=== PATIENT | male | born 1965 | race Caucasian/White ===

== ENCOUNTER 2018-03-04 12:59 | Emergency (ER) | payer OTHER ==
--- NOTE | 2018-03-04 13:13 | CPEKG ---
Heart Rate: 92 RR Interval: 652 P-R Interval: 160 QRSD Interval: 78 QT Interval: 344 QTC Interval: 426 P [place]: 46 QRS [place]: -23 T Wave [place]: 42 EKG Severity - OTHERWISE NORMAL ECG - EKG Impression: SINUS RHYTHM EKG Impression: BORDERLINE LEFT AXIS DEVIATION Electronically Signed By: Timo Andrade 04-Mar-2018 13:18:04
--- NOTE | 2018-03-04 13:14 | EDPHY ---
H & P Stated Complaint: Imbalance Time Seen by Provider: 03/04/18 13:14 HPI/ROS: CHIEF COMPLAINT: TIA HISTORY OF PRESENT ILLNESS: The patient is a 52-year-old man with a history of stroke that improved after lytics 1 year ago. He denies residual complaints other than trouble with his long-term memory. He states that around 930 this morning he began to feel confused and have trouble with his gait. At around 12: 30 p.m. He called his friend who picked him up and brought him to the ER. Patient states that his symptoms are now improved. He also complains of a headache. He denies trauma. No recent fevers or infections. No focal weakness or deficits. No trouble with speech. Some tingling throughout his entire body. No chest pain or shortness of breath. REVIEW OF SYSTEMS: Constitutional: denies: chills, fever, recent illness, recent injury EENTM: denies: blurred vision, double vision, nose congestion Respiratory: denies: cough, shortness of breath Cardiac: denies: chest pain, irregular heart rate, lightheadedness, palpitations Gastrointestinal/Abdominal: denies: abdominal pain, diarrhea, nausea, vomiting, blood streaked stools Genitourinary: denies: dysuria, frequency, hematuria, pain Musculoskeletal: denies: joint pain, muscle pain Skin: denies: lesions, rash, jaundice, bruising Neurological: See HPI denies: numbness, paresthesia, dizziness, weakness Hematologic/Lymphatic: denies: blood clots, easy bleeding, easy bruising Immunologic/allergic: denies: HIV/AIDS, transplant - Physical Exam General Appearance: WD/WN, mild distress Eyes, Ears, Nose, Throat Exam: PERRL/EOMI, normal ENT inspection, pharynx normal Neck: non-tender, full range of motion, supple, normal inspection. No: stiff neck, tender lateral Cardiovascular/Chest: normal peripheral pulses, regular rate, rhythm Respiratory: chest non-tender, lungs clear, normal breath sounds. No: crackles , rhonchi Gastrointestinal/Abdominal: normal bowel sounds, non tender, soft Back Exam: normal inspection Extremity: normal range of motion, non-tender, normal inspection Mental Status: alert, oriented x 3 CN's Exam: NIH stroke score 0, normal hearing, normal speech, PERRL, normal eye position, normal gag reflex, normal pupil position, normal speech. No: facial asymmetry, facial droop, facial paresthesias, gaze palsy, tongue deviation to R, tongue deviation to L Coordination/Gait: normal finger to nose Motor/Sensory: normal. No: motor deficit, sensory deficit, pronator drift (R), pronator drift (L), weak motor strength RUE, weak motor strength LUE, weak motor strength RLE, weak motor strength LLE DTR: tricep (R): 2+, tricep (L): 2+, knee (R): 2+, knee (L): 2+ Skin Exam: warm/dry, normal color Lymphatic: no adenopathy Source: Patient - Medical/Surgical History Hx Asthma: No Hx Chronic Respiratory Disease: No Hx Diabetes: No Hx Cardiac Disease: No Hx Renal Disease: No Hx Cirrhosis: No Hx Alcoholism: No Other PMH: TIA, CVA - Family History Significant Family History: No pertinent family hx - Social History Smoking Status: Never smoked Alcohol Use: Sober Constitutional: Initial Vital Signs Temperature (C) 37.2 C 03/04/18 13:05 Heart Rate 90 03/04/18 13:05 Respiratory Rate 16 03/04/18 13:05 Blood Pressure 157/100 H 03/04/18 13:05 O2 Sat (%) 96 03/04/18 13:05 O2 Delivery Mode Room Air Allergies/Adverse Reactions: No Known Allergies Allergy (Unverified 03/04/18 13:24) Home Medications: Medication Instructions Recorded Aspirin 03/04/18 Zantac 03/04/18 Medical Decision Making - Diagnostics EKG Interpretation: An EKG obtained and was read and documented in trace view. Please see trace view for full reading and report. Sinus rhythm, no acute ischemic change Imaging Results: Imaging Impressions Head CT 03/04/18 13:04 Impression: No acute intracranial findings. Findings discussed with Timo Andrade 03/04/2018 at 13:29. Brain MRI 03/04/18 13:44 Impression: 1. No acute intracranial findings. 2. Punctate left frontal white matter FLAIR hyperintensities, which could be related to chronic microvascular ischemic gliosis, or much less likely sequela of migraines, vasculitis, or demyelination. 3. Tiny area of susceptibility-weighted hypointensity in the left temporoparietal region, which could be related to punctate calcification or hemosiderin deposition. There is equivocal calcification in this region in retrospect on the comparison CT. Findings discussed with Dr. Timo Andrade on March 04, 2018 at 1527 hours. Imaging: Discussed imaging studies w/ at home independent call center agent Radiologist ED Course/Re-evaluation: 1:20 p.m. discussed the case with Dr. Valles from [facility]. 1:[address] Valles agrees that the patient is not a candidate for tPA. He recommends MRI to evaluate for stroke and also recommends treating for migraine in the meantime. He wonders if this could be a complex migraine that is exacerbating previous stroke symptoms. 3:30 p.m. The patient is feeling much better. He states that the migraine medication help. He has never had migraines before. I spoke again with Dr. Valles who states he thinks it is a complex migraine and recommends follow-up with Neurology as an outpatient. Patient and friend are eager to go home. Differential Diagnosis: Partial list of the Differential diagnosis considered include but were not limited to; complex migraine, TIA, CVA and although unlikely based on the history and physical exam, I also considered infection, medication reaction, intoxication, trauma. I discussed these differential diagnoses and the plan with the patient as well as the usual and expected course. The patient understands that the diagnosis is provisional and that in medicine we are not always correct and that further workup is often warranted. Usual and customary warnings were given. All of the patient's questions were answered. The patient was instructed to return to the emergency department should the symptoms at all worsen or return, otherwise to followup with the physician as we discussed. - Data Points Laboratory Results: Laboratory Results 03/04/18 13:14 03/04/18 13:14 03/04/18 03/04/18 03/04/18 13:28 13:15 13:14 WBC RBC Hgb POC Hgb 16.0 gm/dL gm/dL (13.7-17.5) Hct POC Hct 47 % % (40-51) MCV MCH MCHC RDW Plt Count MPV Neut % (Auto) Lymph % (Auto) [place] % (Auto) Eos % (Auto) Baso % (Auto) Nucleat RBC Rel Count Absolute Neuts (auto) Absolute Lymphs (auto) Absolute Monos (auto) Absolute Eos (auto) Absolute Basos (auto) Absolute Nucleated RBC Immature Gran % Immature Gran # PT INR APTT POC Sodium 143 mEq/L mEq/L (135-145) Sodium 143 mEq/L mEq/L (135-145) POC Potassium 3.7 mEq/L mEq/L (3.3-5.0) Potassium 4.1 mEq/L mEq/L (3.3-5.0) POC Chloride 107 mEq/L mEq/L (97-110) Chloride 108 mEq/L mEq/L (97-110) Carbon Dioxide 23 mEq/l mEq/l (22-31) Anion Gap 12 mEq/L mEq/L (8-16) POC BUN 14 mg/dL mg/dL (7-23) BUN 14 mg/dL mg/dL (7-23) Creatinine 0.8 mg/dL mg/dL (0.7-1.3) POC Creatinine 0.9 mg/dL mg/dL (0.7-1.3) Estimated GFR > 60 Glucose 120 mg/dL H mg/dL (70-100) POC Glucose 133 mg/dL H mg/dL (70-100) Calcium 9.6 mg/dL mg/dL (8.5-10.4) POC Troponin I 0.01 ng/mL ng/mL (0.00-0.08) 03/04/18 03/04/18 13:14 13:14 WBC 9.54 10^3/uL H 10^3/uL (3.80-9.50) RBC 5.11 10^6/uL 10^6/uL (4.40-6.38) Hgb 16.0 g/dL g/dL (13.7-17.5) POC Hgb Hct 45.9 % % (40.0-51.0) POC Hct MCV 89.8 fL fL (81.5-99.8) MCH 31.3 pg pg (27.9-34.1) MCHC 34.9 g/dL g/dL (32.4-36.7) RDW 12.5 % % (11.5-15.2) Plt Count 292 10^3/uL 10^3/uL (150-400) MPV 9.2 fL fL (8.7-11.7) Neut % (Auto) 60.1 % % (39.3-74.2) Lymph % (Auto) 28.1 % % (15.0-45.0) [place] % (Auto) 6.5 % % (4.5-13.0) Eos % (Auto) 4.0 % % (0.6-7.6) Baso % (Auto) 0.8 % % (0.3-1.7) Nucleat RBC Rel Count 0.0 % % (0.0-0.2) Absolute Neuts (auto) 5.73 10^3/uL 10^3/uL (1.70-6.50) Absolute Lymphs (auto) 2.68 10^3/uL 10^3/uL (1.00-3.00) Absolute Monos (auto) 0.62 10^3/uL 10^3/uL (0.30-0.80) Absolute Eos (auto) 0.38 10^3/uL 10^3/uL (0.03-0.40) Absolute Basos (auto) 0.08 10^3/uL 10^3/uL (0.02-0.10) Absolute Nucleated RBC 0.00 10^3/uL 10^3/uL (0-0.01) Immature Gran % 0.5 % % (0.0-1.1) Immature Gran # 0.05 10^3/uL 10^3/uL (0.00-0.10) PT 13.0 SEC SEC (12.0-15.0) INR 0.96 (0.83-1.16) APTT 32.8 SEC SEC (23.0-38.0) POC Sodium Sodium POC Potassium Potassium POC Chloride Chloride Carbon Dioxide Anion Gap POC BUN BUN Creatinine POC Creatinine Estimated GFR Glucose POC Glucose Calcium POC Troponin I Medications Given: Discontinued Medications Dexamethasone (Decadron Injection) 10 mg IVP EDNOW ONE Stop: 03/04/18 13:45 Last Admin: 03/04/18 14:20 Dose: 10 mg Sodium Chloride (Ns) 1,000 mls @ 0 mls/hr IV ONCE ONE; Wide Open PRN Reason: Protocol Stop: 03/04/18 13:45 Last Admin: 03/04/18 14:22 Dose: 1,000 mls Ketorolac Tromethamine (Toradol) 30 mg IVP EDNOW ONE Stop: 03/04/18 13:45 Last Admin: 03/04/18 14:18 Dose: 30 mg Lorazepam (Ativan Injection) 1 mg IVP EDNOW ONE Stop: 03/04/18 14:15 Last Admin: 03/04/18 14:14 Dose: 1 mg Metoclopramide HCl (Reglan Injection) 10 mg IVP EDNOW ONE Stop: 03/04/18 13:45 Last Admin: 03/04/18 14:22 Dose: 10 mg Point of Care Test Results: Chemistry 03/04/18 03/04/18 13:28 13:15 POC Sodium 143 mEq/L mEq/L (135-145) POC Potassium 3.7 mEq/L mEq/L (3.3-5.0) POC Chloride 107 mEq/L mEq/L (97-110) POC BUN 14 mg/dL mg/dL (7-23) POC Creatinine 0.9 mg/dL mg/dL (0.7-1.3) POC Glucose 133 mg/dL H mg/dL (70-100) POC Troponin I 0.01 ng/mL ng/mL (0.00-0.08) ISTAT H&H 03/04/18 13:15 POC Hgb 16.0 gm/dL gm/dL (13.7-17.5) POC Hct 47 % % (40-51) Departure - Departure Disposition: Home, Routine, Self-Care Clinical Impression: Complex migraine Condition: Fair Instructions: Migraine Headache (ED) Referrals: NONE *PRIMARY CARE P,. [Primary Care Provider] - As per Instructions Timo Gonzalez DO [Doctor of Osteopathy] - 5-7 days, call for appt.
[2018-03-04 13:20] LABS: PLATELET COUNT 292 10^3/uL (150-400)
[2018-03-04 13:32] LABS: INR 0.96 (0.83-1.16)
[2018-03-04] MEDS ORDERED: NS 1,000 ML IV ONE (13:44)
[2018-03-04] MEDS ORDERED: KETOROLAC 30 MG/1 ML SDV IVP ONE (13:44)
[2018-03-04] MEDS ORDERED: METOCLOPRAMIDE 10 MG/2 ML VIAL IVP ONE (13:44)
[2018-03-04] MEDS ORDERED: DEXAMETHASONE 10 MG/ML VIAL IVP ONE (13:44)
[2018-03-04] MEDS ORDERED: LORazepam 2 MG/ML INJ ONE (14:12)
[2018-03-04] MEDS ORDERED: LORazepam 2 MG/ML INJ IVP ONE (14:14)
[2018-03-04 16:04] VITALS: BP 131/85
== END 2018-03-04 16:04 | disposition home or self-care (01) ==
DX: G43.809 Other migraine, not intractable, without status migrainosus (principal); E86.9 Volume depletion, unspecified; Z79.82 Long term (current) use of aspirin; Z86.73 Personal history of transient ischemic attack (TIA), and cerebral infarction without residual deficits
CPT/HCPCS: 82435-PO; 82565-PO; 82947-PO; 84132-PO; 84295-PO; 84484-PO; 84520-PO; 85014-PO; 96374; J1100; J1885; J2060; J2765